=== PATIENT | female | born 1975 | race Caucasian/White ===

== ENCOUNTER 2018-11-10 08:43 | Emergency (ER) | payer MEDICAID ==
[~2018-11-10] VITALS: Ht 152.4 cm; Wt 67.8 kg
[~2018-11-10 08:43] MED LIST: NAPR-985 PO
[2018-11-10 08:52] VITALS: BP 126/68; PULSE 68; RESP 18; Ht 152.4 cm; Wt 67.8 kg
== END 2018-11-10 09:46 | disposition home or self-care (01) ==
LOC: FTE 08:43
DX: M72.2 Plantar fascial fibromatosis (principal)
CPT/HCPCS: 99282